=== PATIENT | female | born 1980 | race Caucasian/White ===

== ENCOUNTER 2016-06-14 14:24 | Emergency (ER) | payer SELFPAY ==
[2016-06-14 14:43] VITALS: TEMP 97.1
[2016-06-14] MEDS: CLINDAMYCIN PHOSPHATE 150 MG/ML VIAL IM ONE (14:48)
--- NOTE | 2016-06-14 14:53 | ED.PDOC ---
History of Present Illness - General Chief Complaint: General Stated Complaint: facial swelling and pain x several days Time Seen by Provider: 06/14/16 14:32 Source: patient, RN notes reviewed, Vital Signs reviewed Exam Limitations: no limitations - History of Present Illness Initial Comments: Patient c/o left facial swelling and pain. She did have a toothache last week but thought it got better. She has also been having some allergy issues and wonders if this is due to a sinus problem. Timing/Duration: 24 hours Severity: moderate Improving Factors: nothing Worsening Factors: nothing Associated Symptoms: denies symptoms Allergies/Adverse Reactions: Allergies NO KNOWN ALLERGY Allergy (Verified 06/14/16 14:35) Home Medications: Ambulatory Orders Amoxicillin [Amoxil] 500 mg PO TID #30 cap 06/14/16 Review of Systems - Review of Systems Constitutional: States: no symptoms reported. Denies: chills, fever EENTM: States: see HPI, mouth pain, mouth swelling, other - Dental pain Respiratory: States: no symptoms reported Skin: States: no symptoms reported Neurological: States: no symptoms reported. Denies: headache Past Medical History (General) - Patient Medical History Hx Seizures: No Hx Stroke: No Hx Dementia: No Hx Asthma: No Hx of COPD: No Hx Cardiac Disorders: No Hx Congestive Heart Failure: No Hx Pacemaker: No Hx Hypertension: No Hx Thyroid Disease: No Hx Diabetes: No Hx Gastroesophageal Reflux: No Hx Renal Disease: No Hx Cancer: No Hx of HIV: No Hx Hepatitis C: No Hx MRSA: No Surgical History: other - Vaccination History Hx Tetanus, Diphtheria Vaccination: No Hx Influenza Vaccination: No Hx Pneumococcal Vaccination: No Immunizations Up to Date: No - Social History Hx Tobacco Use: No Hx Chewing Tobacco Use: No Hx Alcohol Use: Yes - occasional Hx Substance Use: No Hx Substance Use Treatment: No Hx Depression: No Feels Threatened In Home Enviroment: No Feels Threatened In a Relationship: No Hx Physical Abuse: No Hx Emotional Abuse: No Hx Suspected Abuse: No - Female History Patient is a Female of Child Bearing Age (10 -59 yrs old): No Patient : No Family Medical History - Family History Mother Family History: No Known Living Status: Still Living Physical Exam - Physical Exam General Appearance: Alert, Comfortable, No apparent distress, Well Developed, Well Groomed, Well Hydrated, Well Nourished Eye Exam: bilateral normal Ears, Nose, Throat: normal pharynx, other - L upper last molar has severe decay with surrounding swelling and tenderness. L cheek is swollen and mildly tender. Neck: non-tender, full range of motion, supple, lymphadenopathy (L) Respiratory: no respiratory distress Neurologic: alert, normal mood/affect, oriented x 3 Skin Exam: normal color, warm/dry Comments: Vital Signs - 24 hr 06/14/16 14:35 Temperature 97.1 F L Pulse Rate [ 74 Left Apical] Respiratory 20 Rate Blood Pressure 127/74 [Left Arm] O2 Sat by Pulse 98 Oximetry Departure - Departure Clinical Impression: Dental abscess, Caries involving multiple surfaces of tooth Time of Disposition: 14:55 Disposition: Discharge to Home or Self Care Condition: Good Departure Forms: ED Discharge - Pt. Copy, Patient Portal Self Enrollment Instructions: Tooth Abscess, Tooth Decay Diet: resume usual diet Activity: increase activity as tolerated Prescriptions: Amoxicillin [Amoxil] 500 mg PO TID #30 cap Home Medications: Ambulatory Orders Amoxicillin [Amoxil] 500 mg PO TID #30 cap 06/14/16 Additional Instructions: Follow up with Dentist for definitive treatment.
[2016-06-14 15:08] VITALS: BP 125/84; O2SAT 95
== END 2016-06-14 15:08 | disposition home or self-care (01) ==
LOC: ER 14:24
DX: K04.7 Periapical abscess without sinus (principal); K02.9 Dental caries, unspecified